=== PATIENT | male | born 1945 | race Hispanic/Latino ===

== ENCOUNTER 2018-04-10 19:27 | Emergency (ER) | payer OTHER, MEDICARE ==
[2018-04-10 20:05] LABS: BASOPHILS % (AUTO) 0.6 % (0.0-5.0); HEMATOCRIT 42.3 % (42-54); MEAN CORPUSCULAR HEMOGLOBIN 37.1 pg (27.0-33.0); MEAN CORPUSCULAR HGB CONC 34.8 g/dL (32.0-36.0); MEAN CORPUSCULAR VOLUME 106.7 fL (79-99); MONOCYTES % (AUTO) 9.9 % (3.0-13.0); NEUTROPHILS % (AUTO) 39.5 % (40.0-77.0); NUCLEATED RED BLOOD CELLS 0.2 % (0.0-0.19); PLATELET COUNT (AUTO) 204 K/uL (130-400); RED BLOOD CELL COUNT(AUTO) 3.96 MIL/uL (4.50-6.20); WHITE BLOOD COUNT (AUTO) 7.7 K/uL (4.8-10.8)
[2018-04-10 20:08] LABS: CREATININE 0.7 mg/dL (0.5-1.5); POTASSIUM 3.6 mmol/L (3.5-5.1)
[2018-04-10 20:13] LABS: ALBUMIN 3.5 g/dL (3.5-5.0); BILIRUBIN,TOTAL 0.4 mg/dL (0.2-1.0); TOTAL PROTEIN, SERUM 9.1 g/dL (6.0-8.3)
[2018-04-10 20:24] LABS: APPEARANCE,URINE Clear (CLEAR); BILIRUBIN,URINE Negative (NEGATIVE); COLOR,URINE Yellow (YELLOW); GLUCOSE, URINE (UA) Negative (NEGATIVE); KETONES,URINE Negative (NEGATIVE); LEUKOCYTE ESTERASE ,URINE Negative (NEGATIVE); NITRATE,URINE Negative (NEGATIVE); OCCULT BLOOD,URINE Negative (NEGATIVE); PH,URINE 5.5 (5.0-8.0); PROTEIN,URINE Negative (NEGATIVE); UROBILINOGEN,URINE 0.2 mg/dL (0.2-1.0)
[2018-04-10] MEDS ORDERED: IOHEXOL-350 75 ML VIAL IV ONE (22:25)
== END 2018-04-10 23:31 | disposition home or self-care (01) ==
LOC: EDH 19:27
DX: R14.0 Abdominal distension (gaseous) (principal); F10.10 Alcohol abuse, uncomplicated; Z87.891 Personal history of nicotine dependence; Z79.82 Long term (current) use of aspirin
CPT/HCPCS: 36415; 74177; 76705; 80053; 81003; 83690; 84484; 85025; 93005; 99285; Q9967

== ENCOUNTER → 2018-07-06 | Outpatient (CLI) | payer OTHER, MEDICARE | END | disposition home or self-care (01) | LOC: RAH 09:05 | PROVIDERS: ATTEND Internal Medicine | DX: M47.894 Other spondylosis, thoracic region (principal); M85.88 Other specified disorders of bone density and structure, other site; Z87.891 Personal history of nicotine dependence | CPT/HCPCS: 72072 ==

== ENCOUNTER 2018-09-03 08:02 | Observation (INO) | payer OTHER, MEDICARE ==
[2018-09-03] MEDS ORDERED: ONDANSETRON HCL 4 MG/2 ML VIAL ONE (08:33)
[2018-09-03] MEDS ORDERED: HYDROMORPHONE 1 MG/1 ML AMP ONE ×5 (08:33→23:52)
[2018-09-03 09:00] LABS: BASOPHILS % (AUTO) 0.5 % (0.0-5.0); EOSINOPHILS % (AUTO) 0.8 % (0.0-8.0); HEMATOCRIT 45.2 % (42-54); LYMPHOCYTES % (AUTO) 30.3 % (21.0-51.0); MEAN CORPUSCULAR HEMOGLOBIN 35.7 pg (27.0-33.0); MEAN CORPUSCULAR HGB CONC 34.4 g/dL (32.0-36.0); MEAN CORPUSCULAR VOLUME 104.1 fL (79-99); MONOCYTES % (AUTO) 10.1 % (3.0-13.0); NEUTROPHILS % (AUTO) 58.3 % (40.0-77.0); NUCLEATED RED BLOOD CELLS 0.1 % (0.0-0.19); PLATELET COUNT (AUTO) 193 K/uL (130-400); RED BLOOD CELL COUNT(AUTO) 4.35 MIL/uL (4.50-6.20); RED CELL DISTRIBUTION WIDTH 13.3 % (11.0-15.5); WHITE BLOOD COUNT (AUTO) 5.8 K/uL (4.8-10.8)
[2018-09-03 09:05] LABS: CREATININE 0.8 mg/dL (0.5-1.5); POTASSIUM 3.9 mmol/L (3.5-5.1)
[2018-09-03 09:10] LABS: ALBUMIN 3.2 g/dL (3.5-5.0); BILIRUBIN,TOTAL 0.7 mg/dL (0.2-1.0); TOTAL PROTEIN, SERUM 9.2 g/dL (6.0-8.3)
[2018-09-03 09:15] LABS: INR 0.95 (0.85-1.15); PARTIAL THROMBOPLASTIN TIME 25.4 SEC (26.3-35.5)
[2018-09-03] MEDS ORDERED: ONDANSETRON HCL 4 MG/2 ML VIAL IVP PRN (11:45)
[2018-09-03 16:00] VITALS: BP 137/73
[2018-09-03] MEDS: HYDROMORPHONE HCL 0.5 MG/0.5 ML ML IVP PRN ×3 (17:24→23:55)
[2018-09-03 19:35] VITALS: BP 142/78
[2018-09-04 00:17] VITALS: BP 131/97
[2018-09-04] MEDS ORDERED: HYDROMORPHONE 1 MG/1 ML AMP ONE ×2 (03:58→08:56)
[2018-09-04 04:35] LABS: HEMATOCRIT 38.8 % (42-54); MEAN CORPUSCULAR HEMOGLOBIN 34.6 pg (27.0-33.0); MEAN CORPUSCULAR HGB CONC 33.5 g/dL (32.0-36.0); MEAN CORPUSCULAR VOLUME 103.2 fL (79-99); NUCLEATED RED BLOOD CELLS 0.1 % (0.0-0.19); PLATELET COUNT (AUTO) 166 K/uL (130-400); RED BLOOD CELL COUNT(AUTO) 3.76 MIL/uL (4.50-6.20); RED CELL DISTRIBUTION WIDTH 13.1 % (11.0-15.5); WHITE BLOOD COUNT (AUTO) 5.5 K/uL (4.8-10.8)
[2018-09-04 04:49] LABS: ALBUMIN 2.7 g/dL (3.5-5.0); BILIRUBIN,TOTAL 0.7 mg/dL (0.2-1.0); CREATININE 0.8 mg/dL (0.5-1.5); POTASSIUM 3.7 mmol/L (3.5-5.1)
[2018-09-04] MEDS: HYDROMORPHONE HCL 0.5 MG/0.5 ML ML IVP PRN (06:06)
[2018-09-04 07:30] VITALS: BP 155/89
[2018-09-04] MEDS ORDERED: FENTANYL 25 MCG/HR PATCH TD SCH (08:15)
[2018-09-04] MEDS ORDERED: FAMO20TA8 PO (09:37)
[2018-09-04] MEDS ORDERED: HYDROMORPHONE PO (09:37)
[2018-09-04] MEDS ORDERED: PANT40TA25 PO (09:37)
[2018-09-04] MEDS ORDERED: HYDR-4064 PO (09:37)
[2018-09-04] MEDS ORDERED: TYL3 PO (09:37)
[2018-09-04 11:00] VITALS: BP 122/74
[2018-09-04 16:00] VITALS: BP 138/77
[2018-09-04] MEDS ORDERED: PAMIDRONATE DISODIUM 90MG VIAL 90 MG in SODIUM CHLORIDE 0.9% 1000ML 1,000 ML IV SCH (18:15)
[2018-09-04 19:22] VITALS: BP 129/77
[2018-09-04 23:42] VITALS: BP 139/83
[2018-09-05 03:35] VITALS: BP 126/74
[2018-09-05] MEDS ORDERED: HYDROMORPHONE 1 MG/1 ML AMP ONE ×2 (03:36→07:44)
[2018-09-05] MEDS: HYDROMORPHONE HCL 0.5 MG/0.5 ML ML IVP PRN (08:09)
[2018-09-05 08:31] VITALS: BP 144/76
[2018-09-05] MEDS ORDERED: DEXAMETHASONE 4 MG TAB PO SCH (09:00)
== END 2018-09-05 10:29 | disposition home or self-care (01) ==
LOC: EDH 08:02 → EDHIP 11:18 → 4CH 14:35
PROVIDERS: ADMIT Internal Medicine; ATTEND Internal Medicine
DX: M48.54XA Collapsed vertebra, not elsewhere classified, thoracic region, initial encounter for fracture (principal); C90.00 Multiple myeloma not having achieved remission; X58.XXXA Exposure to other specified factors, initial encounter; Y93.89 Activity, other specified; Y92.89 Other specified places as the place of occurrence of the external cause; Y99.8 Other external cause status; Z79.01 Long term (current) use of anticoagulants
CPT/HCPCS: 36415 ×2; 80053 ×2; 85025; 85027; 85610; 85730; 93005; 96365; 96366 ×2; 96375; 96376 ×3; 99284; G0378 ×47; J1170 ×9; J2405; J2430; J7030; J8540

== ENCOUNTER → 2019-08-20 | Outpatient (CLI) | payer OTHER, MEDICARE ==
[~2019-08-20] MED LIST: FAMO20TA8 PO; HYDR-4064 PO; HYDROMORPHONE PO; PANT40TA25 PO; TYL3 PO
== END | disposition home or self-care (01) ==
LOC: RAH 10:47
PROVIDERS: ATTEND Internal Medicine
DX: M48.54XA Collapsed vertebra, not elsewhere classified, thoracic region, initial encounter for fracture (principal); M43.8X4 Other specified deforming dorsopathies, thoracic region; X58.XXXA Exposure to other specified factors, initial encounter; Y93.89 Activity, other specified; Y92.89 Other specified places as the place of occurrence of the external cause; Y99.8 Other external cause status
CPT/HCPCS: 72070